=== PATIENT | female | born 1955 | race Caucasian/White ===

== ENCOUNTER 2018-09-05 19:52 | Observation (INO) | payer SELFPAY ==
[2018-09-05 20:24] LABS: #Basophils 0.1 thou/uL (0.0-0.2); #Eosinphils 0.4 thou/uL (0.0-0.7); #Lymphocytes 3.9 thou/uL (1.20-3.40); #Monocytes 0.9 thou/uL (0.11-0.59); #Neutrophils 9.2 thou/uL (1.40-6.50); %Basophils 0.8 % (0.0-1.0); %Eosinophils 2.5 % (0.0-10.0); %Monocytes 6.1 % (0.0-10.0); %Neutrophils 63.5 % (42.0-75.0); Hemoglobin 14.9 g/dL (12.0-16.0); Mean Corpuscular Hemoglobin 30.7 pg (27.0-31.0); Mean Corpuscular Volume 90.3 fL (78.0-98.0); Mean Platelet Volume 7.3 fL (7.4-10.4); Platelet Count 403 thou/uL (130-400); RBC Distribution Width 12.1 % (11.5-14.5); Red Blood Cell (RBC) Count 4.86 mill/uL (4.20-5.40); White Blood Cell (WBC) Count 14.5 thou/uL (4.8-10.8)
[2018-09-05 20:38] LABS: ALT (SGPT) 13 U/L (8-55); AST (SGOT) 18 U/L (5-34); Albumin 4.4 g/dL (3.4-4.8); Alkaline Phosphatase 92 U/L (40-150); Anion Gap 16 mmol/L (10-20); BUN (Urea Nitrogen) 16 mg/dL (9.8-20.1); Bilirubin, Total 0.2 mg/dL (0.2-1.2); Calc. Creatinine Clearance 0 mL/min (70-130); Calcium 9.9 mg/dL (7.8-10.44); Carbon Dioxide 27 mmol/L (23-31); Chloride 99 mmol/L (98-107); Estimated GFR-MDRD 66; Globulin 2.8 g/dL (2.4-3.5); Glucose 95 mg/dL (80-115); Potassium 3.6 mmol/L (3.5-5.1); Protein, Total 7.2 g/dL (6.0-8.3); Sodium 138 mmol/L (136-145)
--- NOTE | 2018-09-05 21:11 | CT ---
[facility] Brain WO Con: 09/05/2018 8:14 PM CLINICAL HISTORY: Left facial droop and slurred speech. COMPARISON: None. FINDINGS: Hemorrhage: None. Ventricular system: Normal in size and morphology for the patient's age. Cerebral parenchyma: Mild white matter hypodensity is present indicating microvascular ischemic disea se, age indeterminate. Asymmetric bilateral frontal lobe atrophy. Midline shift: None. Mass: No mass effect. Calvarium: Normal. Visualized Paranasal sinuses: Clear. IMPRESSION: No acute intracranial hemorrhage or mass effect. Asymmetric bifrontal parenchymal atrophy. Recommend clinical correlation in this regard in order to e xclude dementia complex. Microvascular ischemic disease some of which is age indeterminate. This may be further assessed with noncontrast brain MRI.
[2018-09-05 22:58] VITALS: BMI 25.8
[2018-09-06] MEDS ORDERED: PROVENTIL INHALER 6.7 G (200 INHALATIONS) INH PRN (00:16)
[2018-09-06] MEDS ORDERED: Ondansetron ODT 4 MG TAB PO PRN (00:17)
[2018-09-06] MEDS ORDERED: Ondansetron PF 4 MG/2 ML Vial IVP PRN (00:17)
[2018-09-06] MEDS ORDERED: Acetaminophen 325 MG TAB PO PRN (00:17)
[2018-09-06] MEDS: HYDROcodone/Acetaminophen 5/325 mg Tablet PO PRN ×2 (00:28→09:38)
[2018-09-06 01:14] LABS: PTT 32.4 SEC (22.9-36.1); Prothrombin Time 13.5 SEC (12.0-14.7)
[2018-09-06 02:23] LABS: Bilirubin Small (Negative); Blood, Urine Negative (Negative); Clarity CLEAR (Clear); Glucose, Urine (Dipstick) Negative (Negative); Leukocyte Small (Negative); Nitrite Negative (Negative); Protein, Urine (Dipstick) Negative (Neg-Trace); Specific Gravity, Urine 1.025 (1.002-1.036); Urobilinogen 0.2 mg/dL (0.2-1.0)
[2018-09-06 02:25] LABS: Bacteria/HPF None Seen HPF (None Seen); Hyaline Casts/LPF 7-10 HYALINE CAST LPF (0-3 Hyaline); Pathc Cast-AUWi Flag 1.76 (0-2.49); Squamous Epithelial 0-3 HPF (0-3); Urine Culture Reflex No No; WBC/HPF 0-3 HPF (0-3)
[2018-09-06 02:35] LABS: RBC/HPF 0-3 HPF (0-3)
--- NOTE | 2018-09-06 04:15 | HP ---
CHIEF COMPLAINT: Left facial numbness and drooping. HISTORY OF PRESENT ILLNESS: Ms. Barker is a 63-year-old woman, who states 2 days ago, she began to feel changes with her face, which she describes as drooping at the corner of her lips on the left side and issues with dysarthria. The patient states today she then began to have increased tingling. She reports having difficulty closing her left eyelid. She denies having any severe headaches or any extremity numbness or weakness. Denies having any staggering gait or visual disturbances. Her speech has fully improved and she was unable to pinpoint when her symptoms improved with regard to her speech. The left-sided facial droop is still present as well as the inability to close her left eyelid. REVIEW OF SYSTEMS: The patient denies having any falls or head injuries. Again, denies any headaches or dizziness. No recent fevers, chills, or sweats. No neck pain. No nausea or vomiting. No abdominal pain. Moving her bowels was normal. She does suffer from chronic constipation, but this is unchanged. No urinary symptoms. All other review of systems are negative. PAST MEDICAL HISTORY: 1. Hypothyroid. 2. Hypertension. 3. Asthma. PAST SURGICAL HISTORY: 1. Appendix. 2. Hysterectomy. 3. Gallbladder. 4. Breast augmentation. SOCIAL HISTORY: The patient currently smokes half a pack of cigarettes a day and also smokes E cigarettes. Denies any alcohol use or drug use. ALLERGIES: NO KNOWN DRUG ALLERGIES. CURRENT MEDICATIONS: 1. Levothyroxine. 2. Lisinopril. 3. Hydrochlorothiazide. PHYSICAL EXAMINATION: GENERAL: The patient appears well developed and in no acute distress. VITAL SIGNS: Temperature 98.4, pulse 86, respirations 16, O2 saturation 97% on room air, blood pressure 121/73. HEENT: Normocephalic and atraumatic. Pupils are equal, round, and reactive to light. Sclerae are anicteric. Left eyelid notable for lagophthalmos. Extraocular movements intact bilaterally. No nystagmus. Oropharynx is clear. NECK: Supple without lymphadenopathy. Full range of motion. Facial movements abnormal due to drooping on the left side of the face. LUNGS: Clear to auscultation bilaterally. CARDIAC: Regular rate and rhythm. ABDOMEN: Soft, nontender, nondistended. Normoactive bowel sounds present. EXTREMITIES: No clubbing, cyanosis, or edema. NEUROLOGIC: Alert and oriented x3. Notable drooping to the left side of the face with slightly reduced sensation. Speech is normal. Once again, lagophthalmos noted on the left eyelid. Power 5/5 in all limbs. Sensation also intact. LABORATORY DATA: White blood count 14.5, hemoglobin 14.9, hematocrit 43.9, platelets 403. PT 13.5, INR 1.0, PTT 32.4. Electrolytes unremarkable. LFTs normal. Troponin negative. CK 124. BNP 18. Urinalysis notable for trace ketones, small bilirubin, small leukocyte esterase, 7-10 hyaline casts. IMAGING DATA: CT brain showed no acute intracranial hemorrhage or mass effect. Asymmetric bifrontal parenchymal atrophy. Microvascular ischemic disease, some of which is age indeterminate and could be further assessed on noncontrast brain MRI. IMPRESSION AND PLAN: Ms. Barker is a pleasant 63-year-old woman, who is being admitted for management of the followin. Transient ischemic attack/cerebrovascular accident. The patient has undergone CT imaging that is unremarkable for any acute changes. Despite the fact that she has had the symptoms since 2 days ago, there was a change today. Therefore, we will proceed with investigations including carotid Dopplers, CT angiogram of head and neck, and echo. We will obtain a chest x-ray as well. Findings on CT of the brain showed microvascular ischemic disease, somewhat indeterminate. We have requested a noncontrast MRI of the brain to further assess. Neurology consult placed as well as PT, OT. 2. Hypertension. We will resume home medications and monitor blood pressure. 3. Hypothyroidism. We will check TSH and resume home medications. 4. Gastrointestinal prophylaxis. 5. Deep venous thromboembolism prophylaxis. 6. Left lagophthalmos. This is likely to cause her difficulty sleeping tonight as the left eyelid is fixed in open position. We will apply gauze and tape to help close the eyelids so she can rest. 7. Full code status. The patient's case will be discussed with Dr. Jacome for further input and recommendations. Job ID: [id number]
[2018-09-06 05:25] LABS: #Basophils 0.1 thou/uL (0.0-0.2); #Eosinphils 0.6 thou/uL (0.0-0.7); #Lymphocytes 3.3 thou/uL (1.20-3.40); #Monocytes 0.9 thou/uL (0.11-0.59); #Neutrophils 8.6 thou/uL (1.40-6.50); %Basophils 0.5 % (0.0-1.0); %Eosinophils 4.3 % (0.0-10.0); %Lymphocytes 24.4 % (21.0-51.0); %Monocytes 6.7 % (0.0-10.0); %Neutrophils 64.1 % (42.0-75.0); Hemoglobin 14.6 g/dL (12.0-16.0); Mean Corpuscular HGB CONC 33.7 g/dL (32.0-36.0); Mean Corpuscular Hemoglobin 30.5 pg (27.0-31.0); Mean Corpuscular Volume 90.4 fL (78.0-98.0); Mean Platelet Volume 7.2 fL (7.4-10.4); Platelet Count 353 thou/uL (130-400); Red Blood Cell (RBC) Count 4.79 mill/uL (4.20-5.40); White Blood Cell (WBC) Count 13.3 thou/uL (4.8-10.8)
[2018-09-06 05:49] LABS: Anion Gap 14 mmol/L (10-20); BUN (Urea Nitrogen) 14 mg/dL (9.8-20.1); Calc. Creatinine Clearance 63 mL/min (70-130); Calcium 9.3 mg/dL (7.8-10.44); Carbon Dioxide 25 mmol/L (23-31); Cardiac Risk 4.4 (Less than 4.5); Chloride 98 mmol/L (98-107); Cholesterol 166 mg/dl (< 200 Desired); Estimated GFR-MDRD 70; Glucose 125 mg/dL (80-115); HDL Cholesterol 38 mg/dL (>60 Neg Risk); LDL Cholesterol, Calculated 98 mg/dL; Potassium 3.3 mmol/L (3.5-5.1); Sodium 134 mmol/L (136-145); Triglycerides 149 mg/dL (Less than 150)
[2018-09-06] MEDS ORDERED: Levothyroxine Sodium 50 MCG TAB PO SCH (06:00)
--- NOTE | 2018-09-06 07:54 | RAD ---
FXR Chest Pa Lat STANDARD History: [Elevated white cell count] Comparison: None. Findings: The lungs are clear. No pneumothorax or effusion. Cardiac silhouette and mediastinal contou rs are within normal limits. Impression: No acute intrathoracic abnormality.
--- NOTE | 2018-09-06 08:25 | MRI ---
[facility] Brain WO Con History: [CVA/TIA. Stroke. Left facial numbness and slurred speech] Comparison: CT brain prior day Findings: On the diffusion-weighted imaging sequence there are no abnormal areas of diffusion project ion. This is confirmed on the ADC map. Moderate microvascular ischemic changes. No midline shift. No mass effect. Susceptibility weighted imaging sequence is degraded by artifact from motion. Moderate bifrontal atro phy. Clivus marrow signal is normal. Cerebellar tonsils terminate at the level of the foramen magnum. Impression: Chronic findings. No acute intracranial abnormality. No acute hemorrhage or infarction.
[2018-09-06] MEDS ORDERED: Hydrochlorothiazide 25 MG TAB PO SCH (09:00)
[2018-09-06] MEDS ORDERED: Aspirin 81 mg Enteric Coated Tablet PO SCH (09:00)
[2018-09-06] MEDS ORDERED: Famotidine/PF 20 mg/2ml Vial SLOW IVP SCH (09:00)
--- NOTE | 2018-09-06 10:01 | CT ---
PRE AND POSTCONTRAST ENHANCED CTA BRAIN: HISTORY: This 63-year-old presents with a history of CVA versus TIA. FINDINGS: Contrast-enhanced CTA brain and carotids obtained. Two-D and 3D reconstructed images performed on an independent 3D work station. The patient's results from earlier today demonstrate no evidence of acute strokes. There is some moderate atherosclerotic plaque seen in the right and left distal common carotid arteri es extending to the internal carotid arteries. This results in approximately 30% distal right CCA an d proximal right ICA stenosis and approximately 50% left distal CCA and proximal left ICA calcified p laques. The rest of the great vessels are unremarkable. The right and left vertebral arteries are p atent. Basilar artery is patent. Posterior cerebral artery is patent. Distal ICA and supraclinoid ICAs are patent. The right left MCA and KAE vessels are patent. IMPRESSION: Approximately 30% distal right common carotid artery and proximal right internal carotid artery steno sis and approximately 50% left-sided distal common carotid artery and proximal left internal carotid artery disease. POS: C
[2018-09-06 12:20] VITALS: TEMP 98.1
[2018-09-06 12:32] VITALS: BP 112/70
[2018-09-06] MEDS ORDERED: predniSONE 20 MG TAB PO SCH (13:30)
[2018-09-06] MEDS ORDERED: ISOVUE-370 76%-LOCM 1 ML ONE (14:41)
[2018-09-06] MEDS ORDERED: Lisinopril 20 MG TAB PO SCH (21:00)
--- NOTE | 2018-09-07 06:08 | DIS ---
DATE OF ADMISSION: 09/05/2018 DATE OF DISCHARGE: 09/06/2018 CHIEF COMPLAINT: Left facial numbness and drooping. FINAL DIAGNOSES: 1. 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 2. Tobacco abuse. 3. Mild carotid artery stenosis with a 30% distal right common carotid artery and proximal internal carotid artery stenosis and 50% left distal common carotid artery stenosis. PROCEDURE PERFORMED: None. LABORATORY RESULTS: White blood cell count 13.3, hemoglobin 14.6, hematocrit 43.3, MCV 90.4, platelet count is 353. PT 13.5, INR 1.0, PTT 32.4. Sodium 134, potassium 3.3, BUN is 14, creatinine is 0.82, GFR 70, glucose 125, triglycerides 149, cholesterol 166, LDL 98, HDL 38. Urinalysis unremarkable. Troponin was negative. BNP was 18. Liver function enzymes within normal limits. IMAGING RESULTS: CTA of the brain and carotid showed approximately 30% distal common carotid artery and proximal right internal carotid artery stenosis and approximately 50% left-sided distal common carotid artery and proximal left internal carotid artery disease. Echocardiogram showed normal left ventricular systolic function with EF 50% to 55%. E-A flow reversal suggestive of diastolic dysfunction, mild MR, mild TR. Brain MRI, chronic findings including moderate microvascular ischemic changes. No acute intracranial abnormality. No acute hemorrhage or infarction. Brain CT, no acute intracranial hemorrhage or mass effect. Microvascular ischemic disease, some of which is age indeterminate. Noncontrast brain MRI recommended. Chest x-ray, no acute intrathoracic abnormality. CONSULTATIONS: Remote consultation with Dr. Torres. VITAL SIGNS: Blood pressure 117/58, pulse 83, the patient is afebrile, O2 saturation is 96% on room air, and respirations 16. HOSPITAL COURSE: The patient is a pleasant 63-year-old female with past medical history significant for hypothyroidism, hypertension, tobacco abuse, who presented with a 2-day history of left-sided facial drooping at the corner of her lips as well as facial numbness and inability to close her left eye. The patient states that she felt her speech changed because of inability to correctly move her mouth, although she has had no expressive aphasia. She denies any focal deficits as far as upper or lower extremity weakness, dizziness. No palpitations. No chest pain. The patient does state that she believe she had a sinus infection or viral illness the week prior to her presenting symptoms. As outlined above, the patient's stroke workup has been negative. She has some non-hemodynamically significant carotid artery stenosis. The sensation in her face is returning, however, she is unable to close her left eye. Dr. Torres reviewed the case remotely and diagnosed Morales's palsy along with recommending a 10-day steroid course. At the time of my interview, the patient has been ambulating in the halls and feels well. She has no specific complaints to me at this time. PHYSICAL EXAMINATION: GENERAL: The patient is a female who appears her stated age, in no respiratory distress, comfortable. HEENT: Atraumatic and normocephalic. Left eyelid is unable to close. She has a left facial droop. Her speech is normal. Her sensation is intact on the left side of her face at this time. NECK: Supple. No carotid bruits. No lymphadenopathy. No JVD. RESPIRATORY: Regular respiratory rate and pattern, overall clear to auscultation. CV: S1 and S2. Regular rate and rhythm. No appreciable murmurs, rubs, or gallops. GI: Soft, nontender, normal bowel sounds. PERIPHERAL VASCULAR: No lower extremity pitting edema. +2 DP pulses bilaterally. MUSCULOSKELETAL: No joint effusion or swelling. NEUROLOGIC: Awake and alert. She has no focal weaknesses in upper or lower extremities. Regarding facial nerve, the patient unable to innervate left eyelid, cheek muscles, or forehead at this time. SKIN: Warm and dry. No rashes. CONDITION AT DISCHARGE: Stable. DISCHARGE MEDICATIONS: 1. Albuterol inhaler p.r.n. 2. Hydrochlorothiazide 25 mg tablet, one tablet daily. 3. Levothyroxine 50 mcg tablet, one tablet daily. 4. Lisinopril 20 mg tablet, one tablet p.o. at bedtime. New medications will include, 1. Aspirin 81 mg daily. 2. Atorvastatin 10 mg, one tablet p.o. at bedtime. 3. Prednisone 20 mg tablet, one tablet p.o. for the next 10 days. DISCHARGE DISPOSITION: Home. PLAN: I have counseled the patient extensively on Morales's palsy and the importance of patching her left eye until she regains function to avoid corneal abrasions. She will continue her prednisone as recommended. I have counseled her heavily on tobacco cessation, as well as the findings of mild carotid artery stenosis for which I am starting aspirin and statin. She will need to follow up with her primary care doctor as an outpatient. The patient understands the plan as above. Care was discussed with Dr. Schmidt who agrees. All the questions were answered to the patient's satisfaction. Job ID: [id number]
--- NOTE | 2018-09-07 15:13 | CT ---
PRE AND POSTCONTRAST ENHANCED CTA BRAIN: HISTORY: This 63-year-old presents with a history of CVA versus TIA. FINDINGS: Contrast-enhanced CTA brain and carotids obtained. Two-D and 3D reconstructed images performed on an independent 3D work station. The patient's results from earlier today demonstrate no evidence of acute strokes. There is some moderate atherosclerotic plaque seen in the right and left distal common carotid arteries extending to the internal carotid arteries. This results in approximately 30% distal right CCA and proximal right ICA stenosis and approximately 50% left distal CCA and proximal left ICA calcified plaques. The rest of the great vessels are unremarkable. The right and left vertebral arteries are patent. Basilar artery is patent. Posterior cerebral artery is patent. Distal ICA and supraclinoid ICAs are patent. The right left MCA and KAE vessels are patent. IMPRESSION: Approximately 30% distal right common carotid artery and proximal right internal carotid artery stenosis and approximately 50% left-sided distal common carotid artery and proximal left internal carotid artery disease.
--- NOTE | 2018-09-11 15:59 | EKG ---
Test Reason : Blood Pressure : / mmHG Vent. Rate : 091 BPM Atrial Rate : 091 BPM P-R Int : 136 ms QRS Dur : 088 ms QT Int : 362 ms P-R-T Axes : 036 013 066 degrees QTc Int : 445 ms Sinus rhythm with frequent Premature ventricular complexes Septal infarct , age undetermined Abnormal ECG Confirmed by ALEX RAI, ANISHA ([id number]), features editor KINJAL ALLEN ([id number]) on 09/11/2018 3:59:07 PM Referred By: Confirmed By:ANISHA JOHNSON MD
== END 2018-09-06 14:42 | disposition home or self-care (01) ==
LOC: EDBD 19:52 → ERS 19:52 → 2SW 22:44
PROVIDERS: ADMIT Internal Medicine; ATTEND Internal Medicine
DX: G51.0 Bell's palsy (principal); I65.23 Occlusion and stenosis of bilateral carotid arteries; I10 Essential (primary) hypertension; E03.9 Hypothyroidism, unspecified; J45.909 Unspecified asthma, uncomplicated; F17.210 Nicotine dependence, cigarettes, uncomplicated; H02.206 Unspecified lagophthalmos left eye, unspecified eyelid; Z90.710 Acquired absence of both cervix and uterus; Z90.49 Acquired absence of other specified parts of digestive tract; Z79.82 Long term (current) use of aspirin; Z79.52 Long term (current) use of systemic steroids; Z79.899 Other long term (current) drug therapy
CPT/HCPCS: 36415; 70450; 70496; 70498; 70551; 71046; 80048; 80053; 80061; 81001; 82550; 83880; 84443; 84484; 85025; 85610; 85730; 87086; 93005; 93306; 96374; G0378; Q9966; S0028